=== PATIENT | female | born 1950 | race Caucasian/White ===

== ENCOUNTER → 2024-06-19 10:53 | Outpatient (REF) | payer MEDICARE, OTHER, SELFPAY ==
[2024-06-19 15:49] LABS: Free T4 1.73 ng/dl (0.78-2.19)
== END ==
LOC: HWLAB 10:53
PROVIDERS: ATTENDING PHYSICIAN Internal Medicine Endocrinology, Diabetes & Metabolism
DX: E04.2 Nontoxic multinodular goiter (principal)
CPT/HCPCS: 36415; 84439; 84443

== ENCOUNTER → 2025-06-27 09:40 | Outpatient (REF) | payer MEDICARE, OTHER, SELFPAY ==
[2025-06-27 13:50] LABS: TSH 1.26 uIU/ml (0.47-4.68)
== END ==
LOC: HWLAB 09:40
PROVIDERS: ATTENDING PHYSICIAN Internal Medicine Endocrinology, Diabetes & Metabolism
DX: E04.2 Nontoxic multinodular goiter (principal)
CPT/HCPCS: 36415; 84439; 84443